=== PATIENT | female | born 1960 | race Caucasian/White ===

== ENCOUNTER 2024-08-06 13:36 | Emergency (ER) | payer MEDICARE, OTHER ==
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
[2024-08-06 14:14] VITALS: RESP 20; TEMP 96.8
[2024-08-06] MEDS ORDERED: Adacel Vial IM ONE (14:22)
[2024-08-06] MEDS: Adacel Vial IM ONE (14:23)
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
[2024-08-06] MEDS ORDERED: Hydromorphone 1 mg/ml Injection ONE ×2 (15:00→17:34)
[2024-08-06] MEDS ORDERED: CEFAZOLIN 2 GM/100 ML NaCl 2 GM/100 ML IVPB IV ONE (15:01)
[2024-08-06] MEDS: CEFAZOLIN 2 GM/100 ML NaCl 2 GM/100 ML IVPB IV STA (15:02)
[2024-08-06] MEDS: Hydromorphone 1 mg/ml Injection IV ONE ×2 (15:02→17:34)
[2024-08-06] MEDS: Zofran 4 MG/2 ML VIAL IV ONE (15:03)
[2024-08-06] MEDS ORDERED: Zofran 4 MG/2 ML VIAL ONE (15:03)
[2024-08-06 17:44] VITALS: BP 189/73; PULSE 82; O2SAT 96
== END 2024-08-06 17:50 | disposition short-term general hospital (02) ==
LOC: ED 13:36
DX: S66.921A Laceration of unspecified muscle, fascia and tendon at wrist and hand level, right hand, initial encounter (principal); S61.411A Laceration without foreign body of right hand, initial encounter; V99.XXXA Unspecified transport accident, initial encounter
CPT/HCPCS: 71046; 73130; 90471; 90715; 96365; 96374; 96375; 96376; 99285; J0690; J1171; J2405